=== PATIENT | female | born 1975 | race Caucasian/White ===

== ENCOUNTER 2023-08-01 09:49 | Emergency (ER) | payer OTHER ==
[~2023-08-01] VITALS: Ht 170.2 cm; Wt 61.4 kg
[2023-08-01] MEDS ORDERED: LOSA-381 PO (09:52)
[2023-08-01 09:53] VITALS: TEMP 98.1
[2023-08-01] MEDS ORDERED: PNV1TABL58 PO (09:53)
[2023-08-01] MEDS ORDERED: CEPH-558 PO (10:18)
[2023-08-01] MEDS ORDERED: IBUP-1492 PO (10:18)
[2023-08-01 10:25] VITALS: BP 113/91; PULSE 95; RESP 16
== END 2023-08-01 10:26 | disposition home or self-care (01) ==
LOC: EMS 09:52
DX: L03.031 Cellulitis of right toe (principal); E78.00 Pure hypercholesterolemia, unspecified; I10 Essential (primary) hypertension; Z90.89 Acquired absence of other organs; Z98.890 Other specified postprocedural states; Z90.722 Acquired absence of ovaries, bilateral; Z91.040 Latex allergy status
CPT/HCPCS: 99283; Z7502

== ENCOUNTER 2024-06-07 16:53 | Emergency (ER) | payer OTHER ==
[~2024-06-07] VITALS: Ht 160 cm; Wt 68.2 kg
[~2024-06-07 16:53] MED LIST: CEPH-558 PO; IBUP-1492 PO; LOSA-381 PO; PNV1TABL58 PO
[2024-06-07] MEDS ORDERED: IBUP-2070 PO (17:02)
[2024-06-07] MEDS ORDERED: ACET-66 PO (17:02)
[2024-06-07] MEDS ORDERED: OXYC1TAB6 PO (17:02)
[2024-06-07] MEDS ORDERED: POLY510P31 PO (17:02)
[2024-06-07] MEDS ORDERED: LEVO50TA11 PO (17:02)
[2024-06-07] MEDS ORDERED: NALO4SPR22 NASAL (17:02)
[2024-06-07 17:06] VITALS: TEMP 98.2
[2024-06-07 17:45] VITALS: BP 132/81; PULSE 79; RESP 17; O2SAT 98
[2024-06-07] MEDS: KETOROLAC TROMETHAMINE 30 MG/ML VIAL IVP ONE (17:45)
[2024-06-07] MEDS: MORPHINE SULFATE 4 MG/ML SYRINGE IVP ONE (17:45)
[2024-06-07] MEDS: SODIUM CHLORIDE 0.9% 1,000 ML IV ONE (17:45)
[2024-06-07] MEDS: ONDANSETRON HCL 4 MG/2 ML VIAL IVP ONE (17:46)
[2024-06-07 17:52] LABS: APPEARANCE,URINE HAZY (CLEAR); BILIRUBIN,URINE NEGATIVE (NEGATIVE); COLOR,URINE LIGHT YELLOW (YELLOW); GLUCOSE, URINE (UA) NEGATIVE (NEGATIVE); LEUKOCYTE ESTERASE ,URINE NEGATIVE (NEGATIVE); NITRATE,URINE NEGATIVE (NEGATIVE); OCCULT BLOOD,URINE NEGATIVE (NEGATIVE); PROTEIN,URINE NEGATIVE (NEGATIVE); SPECIFIC GRAVITIY, URINE 1.014 (1.003-1.030); UROBILINOGEN,URINE <=1.0 mg/dL (<=1.0)
[2024-06-07 17:57] LABS: BASOPHILS % (AUTO) 0.4 % (0.0-2.0); EOSINOPHILS % (AUTO) 0.1 % (1.0-6.0); HEMATOCRIT 44.1 % (36-46); HEMOGLOBIN 14.2 g/dL (12.0-16.0); MEAN CORPUSCULAR HEMOGLOBIN 30.5 pg (26.0-34.0); MEAN CORPUSCULAR HGB CONC 32.1 G/dL (31.0-37.0); MEAN CORPUSCULAR VOLUME 95 fL (80-100); MONOCYTES # (AUTO) 0.2 K/uL (0.1-1.0); NEUTROPHILS # (AUTO) 7.8 K/uL (1.8-7.7); PLATELET COUNT (AUTO) 350 K/uL (150-450); RED BLOOD CELL COUNT(AUTO) 4.65 MIL/uL (4.00-5.20); RED CELL DISTRIBUTION WIDTH 13.4 % (11.5-14.5)
[2024-06-07 17:58] LABS: NEUTROPHILS % (AUTO) 86.5 % (40.0-70.0)
[2024-06-07 18:02] LABS: BACTERIA,URINE Few /HPF (None Seen); SQUAMOUS EPITHELIAL CELL,UR Few /LPF (None Seen); WBC,URINE 0-2 /HPF (0-5)
[2024-06-07 18:07] LABS: ANION GAP 7 mmol/L (8-16); CALCIUM, TOTAL 9.3 mg/dL (8.8-10.5); CARBON DIOXIDE 30 mmol/L (22-29); CHLORIDE 102 mmol/L (98-107); CREATININE 0.47 mg/dL (0.60-1.30); GLOMERULAR FILTR. RATE CALC > 60 mL/min (>60); GLUCOSE,RANDOM 120 mg/dL (70-110); POTASSIUM 3.9 mmol/L (3.5-5.1); SODIUM SERUM 139 mmol/L (136-145); UREA NITROGEN, BLOOD 11 mg/dL (7-18)
[2024-06-07 18:09] LABS: PLATELET MORPHOLOGY COMMENT GIANT PLTS PRESENT; RBC MORPHOLOGY COMMENT NORMAL RBC MORPH
[2024-06-07] MEDS ORDERED: TAMS0.4C94 PO (18:22)
[2024-06-07] MEDS ORDERED: ACET-2080 PO (18:22)
[2024-06-07] MEDS ORDERED: IBUP-1554 PO (18:22)
[2024-06-07] MEDS ORDERED: ONDA-104 PO (18:43)
== END 2024-06-07 18:47 | disposition home or self-care (01) ==
LOC: EMS 16:55
DX: N20.0 Calculus of kidney (principal); R51.9 Headache, unspecified; I10 Essential (primary) hypertension; E78.00 Pure hypercholesterolemia, unspecified; Z87.442 Personal history of urinary calculi; Z90.721 Acquired absence of ovaries, unilateral; Z90.89 Acquired absence of other organs; Z79.899 Other long term (current) drug therapy
CPT/HCPCS: 99284; 96374; 96375; 96361; 80048; 81001; 85025; 36415; J1885; J2270; J2405; J7030

== ENCOUNTER 2024-07-05 13:22 | Emergency (ER) | payer OTHER ==
[~2024-07-05] VITALS: Ht 170.2 cm; Wt 63.6 kg
[~2024-07-05 13:22] MED LIST changes: +ACET-2080 PO; +ACET-66 PO; -CEPH-558 PO; -IBUP-1492 PO; +IBUP-1554 PO; +IBUP-2070 PO; +LEVO50TA11 PO; +NALO4SPR22 NASAL; +ONDA-104 PO; +OXYC1TAB6 PO; -PNV1TABL58 PO; +POLY510P31 PO; +TAMS0.4C94 PO
[2024-07-05 13:31] VITALS: TEMP 98.6
[2024-07-05 14:29] LABS: BASOPHILS % (AUTO) 0.4 % (0.0-2.0); EOSINOPHILS % (AUTO) 0.3 % (1.0-6.0); HEMATOCRIT 41.8 % (36-46); HEMOGLOBIN 13.7 g/dL (12.0-16.0); LYMPHOCYTES # (AUTO) 0.8 K/uL (1.0-4.8); LYMPHOCYTES % (AUTO) 8.6 % (22.0-44.0); MEAN CORPUSCULAR HEMOGLOBIN 30.4 pg (26.0-34.0); MEAN CORPUSCULAR HGB CONC 32.8 G/dL (31.0-37.0); MEAN CORPUSCULAR VOLUME 93 fL (80-100); MONOCYTES # (AUTO) 0.2 K/uL (0.1-1.0); MONOCYTES % (AUTO) 1.9 % (2.0-9.0); NEUTROPHILS # (AUTO) 8.4 K/uL (1.8-7.7); PLATELET COUNT (AUTO) 267 K/uL (150-450); RED BLOOD CELL COUNT(AUTO) 4.51 MIL/uL (4.00-5.20); RED CELL DISTRIBUTION WIDTH 13.5 % (11.5-14.5); WHITE BLOOD COUNT (AUTO) 9.5 K/uL (4.5-11.0)
[2024-07-05 14:30] LABS: NEUTROPHILS % (AUTO) 88.8 % (40.0-70.0)
[2024-07-05 14:45] LABS: ANION GAP 9 mmol/L (8-16); CALCIUM, TOTAL 9.2 mg/dL (8.8-10.5); CARBON DIOXIDE 30 mmol/L (22-29); CHLORIDE 104 mmol/L (98-107); CREATININE 0.54 mg/dL (0.60-1.30); GLOMERULAR FILTR. RATE CALC > 60 mL/min (>60); GLUCOSE,RANDOM 121 mg/dL (70-110); POTASSIUM 3.8 mmol/L (3.5-5.1); SODIUM SERUM 143 mmol/L (136-145); UREA NITROGEN, BLOOD 11 mg/dL (7-18)
[2024-07-05 15:01] LABS: HCG,QUANTITATIVE 2 mIU/mL (0-6); LIPASE 42 U/L (16-77)
[2024-07-05 16:16] LABS: APPEARANCE,URINE CLEAR (CLEAR); BILIRUBIN,URINE NEGATIVE (NEGATIVE); COLOR,URINE LIGHT YELLOW (YELLOW); GLUCOSE, URINE (UA) NEGATIVE (NEGATIVE); KETONES,URINE 40-60 mg/dL (NEGATIVE); LEUKOCYTE ESTERASE ,URINE NEGATIVE (NEGATIVE); NITRATE,URINE NEGATIVE (NEGATIVE); OCCULT BLOOD,URINE NEGATIVE (NEGATIVE); PH,URINE 7.5 (5.0-8.0); PROTEIN,URINE NEGATIVE (NEGATIVE); SPECIFIC GRAVITIY, URINE 1.012 (1.003-1.030); UROBILINOGEN,URINE <=1.0 mg/dL (<=1.0)
[2024-07-05] MEDS: ONDANSETRON 4 MG TABLET PO ONE (17:38)
[2024-07-05] MEDS: KETOROLAC TROMETHAMINE 60 MG/2 ML VIAL IM ONE (17:39)
[2024-07-05] MEDS: ONDANSETRON HCL 4 MG/2 ML VIAL IVP ONE ×2 (19:33→21:07)
[2024-07-05] MEDS: SODIUM CHLORIDE 0.9% 2,000 ML IV ONE (19:34)
[2024-07-05] MEDS: HYDROmorphone HCL 2 MG/ML SYRINGE IVP ONE (19:34)
[2024-07-05] MEDS ORDERED: PROM25SU10 PR (20:38)
[2024-07-05] MEDS ORDERED: HYDR-4062 PO (20:38)
[2024-07-05 20:52] VITALS: BP 132/76; PULSE 75; RESP 18; O2SAT 99
== END 2024-07-05 22:06 | disposition home or self-care (01) ==
LOC: EMS 13:22
DX: R51.9 Headache, unspecified (principal); I10 Essential (primary) hypertension; E78.00 Pure hypercholesterolemia, unspecified; R11.10 Vomiting, unspecified; Z91.040 Latex allergy status; Z87.442 Personal history of urinary calculi; Z90.89 Acquired absence of other organs; Z90.721 Acquired absence of ovaries, unilateral; Z79.899 Other long term (current) drug therapy
CPT/HCPCS: 99285; 96374; 70450; 96361; 96375; 80048; 81003; 83690; 84702; 85025; 36415; 96376; 96372; J1885; J1171; J2405; Q0162; J7030